=== PATIENT | male | born 1980 | race Caucasian/White ===

== ENCOUNTER 2020-11-13 18:16 | Emergency (ER) | payer MEDICARE, OTHER ==
[~2020-11-13 18:16] MED LIST: BACTROBAN OINT22 GM EXT; CLEOCIN HCL300 MG PO; IBUPROFEN600 MG PO; MOBIC15 MG PO; VENTOLIN HFA 66.7 GM INH; ZITHROMAX250 MG PO
[2020-11-13 18:45] LABS: HEMOGLOBIN 16.4 gm/dl (14.0-17.5); RED BLOOD COUNT 5.08 M/UL (4.20-5.50); WHITE BLOOD COUNT 7.2 K/UL (4.5-11.0)
[2020-11-13 19:05] LABS: BUN/CREATININE RATIO 12 (0-10)
== END 2020-11-13 20:20 | disposition home or self-care (01) ==
LOC: ER1 18:16
PROVIDERS: Family Medicine
DX: R56.9 Unspecified convulsions (principal); F10.10 Alcohol abuse, uncomplicated; Y90.6 Blood alcohol level of 120-199 mg/100 ml; Z88.0 Allergy status to penicillin
CPT/HCPCS: 70450; 80053; 80307; 81001; 83735; 85025; 93005; 96374; 96375; 99285; G0480; J2060; J3411; J3475; J7030